=== PATIENT | male | born 1950 | race Caucasian/White ===

== ENCOUNTER 2016-04-09 13:59 | Inpatient (IN) | payer MEDICARE, OTHER ==
[~2016-04-09] VITALS: Ht 180.3 cm; Wt 71.8 kg
[2016-04-09] MEDS ORDERED: ALPRAZOLAM 0.25 MG TAB PO PRN (14:05)
[2016-04-09] MEDS ORDERED: ONDANSETRON 4 MG VIAL IV PRN (14:05)
[2016-04-09] MEDS ORDERED: ALU/MAG/SIM 30 ML UDC PO PRN (14:05)
[2016-04-09] MEDS ORDERED: MAG HYDROX 30 ML UDC PO PRN (14:05)
[2016-04-09] MEDS ORDERED: ACETAMINOPHEN 325 MG TAB PO PRN (14:05)
[2016-04-09] MEDS ORDERED: OXYCODONE 5 MG TAB PO PRN (14:05)
[2016-04-09] MEDS ORDERED: PROMETHAZINE 25 MG/ML VIAL IV PRN (14:05)
[2016-04-09] MEDS ORDERED: BISACODYL EC 5 MG TAB PO PRN (14:05)
[2016-04-09] MEDS ORDERED: BISACODYL 10 MG SUPP RECTAL PRN (14:05)
[2016-04-09] MEDS: NEUPOGEN 480MCG VIAL SUBQ SCH ×2 (15:12→18:18)
[2016-04-09] MEDS ORDERED: **NOTE TO NURSE**PLEASE ENTER HT AND WT FOR VANCOMYCIN DOSING XX SCH (15:15)
[2016-04-09 15:30] VITALS: BP_SYST 80; RESP 20; TEMP 98.5; Ht 180.3 cm; Wt 71.8 kg
[2016-04-09] MEDS: DUONEB INH SCH ×3 (16:06→23:08)
[2016-04-09 16:17] VITALS: RESP 24
[2016-04-09] MEDS: MULTIVITS/MINERALS (THERAGRAN M) TAB PO SCH (16:25)
[2016-04-09] MEDS ORDERED: PHARMACY TO DOSE VANCOMYCIN IV SCH (16:25)
[2016-04-09] MEDS: GABAPENTIN 300 MG CAP PO SCH ×2 (16:25→21:46)
[2016-04-09] MEDS ORDERED: NEB-ALBUTEROL 2.5 MG/3 ML INH PRN (16:25)
[2016-04-09] MEDS: MEGESTROL 800 MG/20 ML UDC PO SCH (16:25)
[2016-04-09] MEDS ORDERED: MULTIVITS/MINERALS (THERAGRAN M) TAB PO SCH (16:25)
[2016-04-09] MEDS: OXYCODONE 5 MG TAB PO SCH (16:25)
[2016-04-09] MEDS ORDERED: ONDANSETRON 4 MG TAB PO PRN (16:25)
[2016-04-09] MEDS: NICOTINE 21 MG/24 HR TRANSDERM SCH (16:25)
[2016-04-09] MEDS: PROCHLORPERAZINE 5 MG TAB PO SCH (16:25)
[2016-04-09] MEDS: FERROUS SULF 325 MG TAB PO SCH (16:25)
[2016-04-09] MEDS: POLYETHYLENE GLYCOL 17 GM PACKET PO SCH (16:25)
[2016-04-09] MEDS: SODIUM CHLORIDE 0.9% FLUSH BAG 500 ML IV SCH (18:57)
[2016-04-09] MEDS ORDERED: VANCOMYCIN 1,500 MG in SODIUM CHLORIDE 0.9% 250 ML IV STA (19:21)
[2016-04-09] MEDS: SALINE FLUSH 10 ML FLUSH SCH (20:00)
[2016-04-09 20:12] VITALS: BP_SYST 101; TEMP 99.9
[2016-04-09 20:13] VITALS: RESP 18
[2016-04-09] MEDS ORDERED: Dronabinol 2.5 MG CAP PO SCH (21:00)
[2016-04-09] MEDS ORDERED: SODIUM CHLORIDE 0.9% 500 ML IV ONE (21:10)
[2016-04-09 21:22] VITALS: TEMP 102.7
[2016-04-09] MEDS: MORPHINE ER 15 MG TAB PO SCH (21:44)
[2016-04-09] MEDS: TEMAZEPAM 15 MG CAP PO SCH (21:44)
[2016-04-09] MEDS: Senna/DSS 50/8.6 MG TAB PO SCH (21:45)
[2016-04-09] MEDS: FAMOTIDINE 20 MG TAB PO SCH (21:45)
[2016-04-09] MEDS: ROSUVASTATIN 20 MG TAB PO SCH (21:46)
[2016-04-09] MEDS: ACETAMINOPHEN 500 MG TAB PO PRN (22:15)
[2016-04-09 23:42] VITALS: BP_SYST 99; RESP 20; TEMP 100.3
[2016-04-10] VITALS (8 sets, daily range): BP systolic 93–129; RESP 18–22; TEMP 98.9–102.8
[2016-04-10] MEDS: DUONEB INH SCH ×6 (03:00→22:55)
[2016-04-10] MEDS: PROCHLORPERAZINE 5 MG TAB PO SCH ×4 (06:32→18:06)
[2016-04-10] MEDS: SODIUM CHLORIDE 0.9% FLUSH BAG 500 ML IV SCH (06:34)
[2016-04-10] MEDS: MORPHINE ER 15 MG TAB PO SCH ×2 (08:36→22:02)
[2016-04-10] MEDS: ACETAMINOPHEN 500 MG TAB PO PRN (08:37)
[2016-04-10] MEDS: VANCOMYCIN 1,250 MG in SODIUM CHLORIDE 0.9% 250 ML IV SCH ×2 (08:38→20:50)
[2016-04-10] MEDS: SALINE FLUSH 10 ML FLUSH PRN (08:39)
[2016-04-10] MEDS: NEUPOGEN 480MCG VIAL SUBQ SCH (08:46)
[2016-04-10] MEDS: OXYCODONE 5 MG TAB PO SCH (09:00)
[2016-04-10] MEDS: POLYETHYLENE GLYCOL 17 GM PACKET PO SCH (09:00)
[2016-04-10] MEDS: SALINE FLUSH 10 ML FLUSH SCH ×2 (10:15→20:50)
[2016-04-10] MEDS: MEGESTROL 800 MG/20 ML UDC PO SCH (10:16)
[2016-04-10] MEDS: FAMOTIDINE 20 MG TAB PO SCH ×2 (10:17→22:01)
[2016-04-10] MEDS: GABAPENTIN 300 MG CAP PO SCH ×3 (10:17→22:02)
[2016-04-10] MEDS: Senna/DSS 50/8.6 MG TAB PO SCH ×2 (10:18→22:03)
[2016-04-10] MEDS: MULTIVITS/MINERALS (THERAGRAN M) TAB PO SCH (10:18)
[2016-04-10] MEDS: FERROUS SULF 325 MG TAB PO SCH (10:18)
[2016-04-10] MEDS: NICOTINE 21 MG/24 HR TRANSDERM SCH (10:19)
[2016-04-10] MEDS: Dronabinol 2.5 MG CAP PO SCH ×2 (11:29→16:36)
[2016-04-10] MEDS: ACETAMINOPHEN 325 MG TAB PO PRN (16:37)
[2016-04-10] MEDS: ROSUVASTATIN 20 MG TAB PO SCH (22:01)
[2016-04-10] MEDS: TEMAZEPAM 15 MG CAP PO SCH (22:03)
[2016-04-11] VITALS (7 sets, daily range): BP systolic 89–109; RESP 16–18; TEMP 98.4–99.8
[2016-04-11] MEDS: PROCHLORPERAZINE 5 MG TAB PO SCH ×4 (01:00→18:18)
[2016-04-11] MEDS: DUONEB INH SCH ×6 (02:39→23:00)
[2016-04-11] MEDS: SODIUM CHLORIDE 0.9% FLUSH BAG 500 ML IV SCH ×2 (06:00→06:10)
[2016-04-11] MEDS: MEGESTROL 800 MG/20 ML UDC PO SCH (06:10)
[2016-04-11] MEDS: SALINE FLUSH 10 ML FLUSH PRN (06:11)
[2016-04-11] MEDS: SALINE FLUSH 10 ML FLUSH SCH ×2 (08:32→20:00)
[2016-04-11] MEDS: VANCOMYCIN 1,250 MG in SODIUM CHLORIDE 0.9% 250 ML IV SCH ×2 (08:33→20:26)
[2016-04-11] MEDS: FAMOTIDINE 20 MG TAB PO SCH ×2 (08:34→22:14)
[2016-04-11] MEDS: GABAPENTIN 300 MG CAP PO SCH ×3 (08:34→22:15)
[2016-04-11] MEDS: MORPHINE ER 15 MG TAB PO SCH ×2 (08:34→22:15)
[2016-04-11] MEDS: MULTIVITS/MINERALS (THERAGRAN M) TAB PO SCH (08:34)
[2016-04-11] MEDS: FERROUS SULF 325 MG TAB PO SCH (08:34)
[2016-04-11] MEDS: OXYCODONE 5 MG TAB PO SCH (08:35)
[2016-04-11] MEDS: Senna/DSS 50/8.6 MG TAB PO SCH ×2 (08:35→20:24)
[2016-04-11] MEDS: POLYETHYLENE GLYCOL 17 GM PACKET PO SCH (08:35)
[2016-04-11] MEDS: NICOTINE 21 MG/24 HR TRANSDERM SCH (08:36)
[2016-04-11] MEDS: Dronabinol 2.5 MG CAP PO SCH ×2 (12:01→16:18)
[2016-04-11] MEDS ORDERED: SODIUM CHLORIDE 0.9% 1,000 ML IV SCH (19:05)
[2016-04-11] MEDS ORDERED: MISSING DOSE XX ONE (20:20)
[2016-04-11] MEDS: LOPERAMIDE 2 MG CAPSULE PO PRN ×2 (20:56→22:34)
[2016-04-11] MEDS: ROSUVASTATIN 20 MG TAB PO SCH (22:15)
[2016-04-11] MEDS: TEMAZEPAM 15 MG CAP PO SCH (22:15)
[2016-04-12] MEDS: DUONEB INH SCH ×6 (02:33→22:50)
[2016-04-12 03:52] VITALS: BP_SYST 116; RESP 18; TEMP 98
[2016-04-12] MEDS: SODIUM CHLORIDE 0.9% FLUSH BAG 500 ML IV SCH ×2 (05:53)
[2016-04-12] MEDS: PROCHLORPERAZINE 5 MG TAB PO SCH ×5 (05:54→23:56)
[2016-04-12] MEDS: MEGESTROL 800 MG/20 ML UDC PO SCH (05:54)
[2016-04-12] MEDS: VANCOMYCIN 1,500 MG in SODIUM CHLORIDE 0.9% 250 ML IV SCH ×2 (05:59→16:47)
[2016-04-12 07:38] VITALS: BP_SYST 104; RESP 18; TEMP 98.3
[2016-04-12] MEDS: SALINE FLUSH 10 ML FLUSH SCH ×2 (08:00→20:00)
[2016-04-12] MEDS: POLYETHYLENE GLYCOL 17 GM PACKET PO SCH (08:37)
[2016-04-12] MEDS: OXYCODONE 5 MG TAB PO SCH (08:38)
[2016-04-12] MEDS: Senna/DSS 50/8.6 MG TAB PO SCH ×2 (08:38→21:00)
[2016-04-12] MEDS: GABAPENTIN 300 MG CAP PO SCH ×3 (08:49→21:21)
[2016-04-12] MEDS: FAMOTIDINE 20 MG TAB PO SCH ×2 (08:49→21:19)
[2016-04-12] MEDS: MULTIVITS/MINERALS (THERAGRAN M) TAB PO SCH (08:49)
[2016-04-12] MEDS ORDERED: MISSING DOSE XX ONE ×2 (08:50→21:05)
[2016-04-12] MEDS: MORPHINE ER 15 MG TAB PO SCH ×2 (08:50→21:20)
[2016-04-12] MEDS: FERROUS SULF 325 MG TAB PO SCH (08:50)
[2016-04-12] MEDS: NICOTINE 21 MG/24 HR TRANSDERM SCH (08:51)
[2016-04-12] MEDS: LOPERAMIDE 2 MG CAPSULE PO PRN (09:49)
[2016-04-12 11:12] VITALS: BP_SYST 112; RESP 18; TEMP 98.3
[2016-04-12] MEDS: Dronabinol 2.5 MG CAP PO SCH ×2 (11:48→16:44)
[2016-04-12] MEDS: GUAIFEN/DM 10 ML UDC PO PRN ×2 (15:07→22:57)
[2016-04-12 15:11] VITALS: BP_SYST 115; RESP 18; TEMP 98.5
[2016-04-12] MEDS: ACETAMINOPHEN 325 MG TAB PO PRN (16:45)
[2016-04-12 19:49] VITALS: BP_SYST 96; RESP 16; TEMP 99.4
[2016-04-12] MEDS: ROSUVASTATIN 20 MG TAB PO SCH (21:20)
[2016-04-12] MEDS: TEMAZEPAM 15 MG CAP PO SCH (21:20)
[2016-04-12 23:25] VITALS: BP_SYST 118; RESP 18; TEMP 99.3
[2016-04-13] MEDS: DUONEB INH SCH ×3 (02:31→11:20)
[2016-04-13 03:27] VITALS: BP_SYST 147; RESP 20; TEMP 97.8
[2016-04-13] MEDS ORDERED: MISSING DOSE XX ONE (05:55)
[2016-04-13] MEDS: SODIUM CHLORIDE 0.9% FLUSH BAG 500 ML IV SCH ×2 (06:00)
[2016-04-13] MEDS: VANCOMYCIN 1,500 MG in SODIUM CHLORIDE 0.9% 250 ML IV SCH (06:17)
[2016-04-13] MEDS: PROCHLORPERAZINE 5 MG TAB PO SCH ×2 (06:18→11:47)
[2016-04-13] MEDS: LOPERAMIDE 2 MG CAPSULE PO PRN (06:26)
[2016-04-13] MEDS: GUAIFEN/DM 10 ML UDC PO PRN (07:05)
[2016-04-13 07:23] VITALS: BP_SYST 113; TEMP 98.2
[2016-04-13 07:24] VITALS: RESP 18
[2016-04-13] MEDS: SALINE FLUSH 10 ML FLUSH PRN (08:18)
[2016-04-13] MEDS: Senna/DSS 50/8.6 MG TAB PO SCH (09:00)
[2016-04-13] MEDS: POLYETHYLENE GLYCOL 17 GM PACKET PO SCH (09:00)
[2016-04-13] MEDS: OXYCODONE 5 MG TAB PO SCH (09:00)
[2016-04-13] MEDS: SALINE FLUSH 10 ML FLUSH SCH ×2 (09:05→13:22)
[2016-04-13] MEDS: FAMOTIDINE 20 MG TAB PO SCH (09:07)
[2016-04-13] MEDS: MEGESTROL 800 MG/20 ML UDC PO SCH (09:07)
[2016-04-13] MEDS: MORPHINE ER 15 MG TAB PO SCH (09:07)
[2016-04-13] MEDS: GABAPENTIN 300 MG CAP PO SCH (09:08)
[2016-04-13] MEDS: MULTIVITS/MINERALS (THERAGRAN M) TAB PO SCH (09:08)
[2016-04-13] MEDS: FERROUS SULF 325 MG TAB PO SCH (09:09)
[2016-04-13] MEDS: NICOTINE 21 MG/24 HR TRANSDERM SCH (09:10)
[2016-04-13 11:31] VITALS: TEMP 98
[2016-04-13 11:32] VITALS: BP_SYST 102; RESP 18
[2016-04-13] MEDS: Dronabinol 2.5 MG CAP PO SCH (11:47)
[2016-04-13 13:01] VITALS: BP_SYST 102; RESP 18; TEMP 98
== END 2016-04-13 13:37 | disposition home or self-care (01) | DRG 809 ==
LOC: ENRESERVDT → ENRESERVTM → ENPENDDIS 15:05 → 3NT 15:05
PROVIDERS: ADMIT Internal Medicine; ATTEND Internal Medicine
DX: D70.9 Neutropenia, unspecified (principal); C34.90 Malignant neoplasm of unspecified part of unspecified bronchus or lung; C79.51 Secondary malignant neoplasm of bone; D69.59 Other secondary thrombocytopenia; J44.9 Chronic obstructive pulmonary disease, unspecified; D64.81 Anemia due to antineoplastic chemotherapy; K22.2 Esophageal obstruction; R50.81 Fever presenting with conditions classified elsewhere; Z79.899 Other long term (current) drug therapy; Z72.0 Tobacco use; E78.5 Hyperlipidemia, unspecified; K21.9 Gastro-esophageal reflux disease without esophagitis; G62.9 Polyneuropathy, unspecified
CPT/HCPCS: 36415; 71020; 80048; 80053; 80202; 81003; 83605; 83615; 83735; 85007; 85025; 85027; 87040; 87071; 87493; 87804; 94640; 94799; 96361; 96367; 96375; 96413; 96417; 99215; 99223; 99232; 99233; 99239; 99255